=== PATIENT | male | born 1940 | race Caucasian/White ===

== ENCOUNTER → 2023-10-28 10:09 | Outpatient (REF) | payer MEDICARE, OTHER, SELFPAY | LOC: RCS 10:09 | PROVIDERS: ATTENDING PHYSICIAN Internal Medicine Cardiovascular Disease; FAMILY PHYSICIAN Family Medicine | DX: I49.3 Ventricular premature depolarization (principal) | CPT/HCPCS: 93225; 93226 ==

== ENCOUNTER → 2024-01-27 13:29 | Outpatient (REF) | payer MEDICARE, OTHER, SELFPAY | LOC: HWRAD 13:29 | PROVIDERS: ATTENDING PHYSICIAN Family Medicine | DX: R07.9 Chest pain, unspecified (principal); M25.551 Pain in right hip; M25.561 Pain in right knee | CPT/HCPCS: 71101; 73502; 73564 ==

== ENCOUNTER → 2024-09-10 11:16 | Outpatient (REF) | payer MEDICARE, OTHER, SELFPAY | LOC: HWRAD 11:16 | PROVIDERS: ATTENDING PHYSICIAN Family Medicine | DX: R31.9 Hematuria, unspecified (principal) | CPT/HCPCS: 76770 ==

== ENCOUNTER → 2024-09-25 13:10 | Outpatient (REF) | payer MEDICARE, OTHER, SELFPAY | LOC: RAD 13:10 | PROVIDERS: ATTENDING PHYSICIAN Urology; FAMILY PHYSICIAN Family Medicine | DX: R31.9 Hematuria, unspecified (principal) | CPT/HCPCS: 74178; Q9967 ==

== ENCOUNTER → 2025-02-18 15:06 | Outpatient (REF) | payer MEDICARE, OTHER, SELFPAY | LOC: CLAB 15:06 | PROVIDERS: ATTENDING PHYSICIAN Urology | DX: R31.9 Hematuria, unspecified (principal) | CPT/HCPCS: 88112 ==

== ENCOUNTER 2025-03-07 06:22 | Day surgery (SDC) | payer MEDICARE, OTHER, SELFPAY ==
[2025-03-07] VITALS (7 sets, daily range): BP systolic 159–178; BP diastolic 77–93; BMI 35.3
[2025-03-07] MEDS: CYSVIEW KIT 100 MG INTRAVES (11:40)
[2025-03-07] MEDS: NORMOSOL-R/PLASMALYTE-A 1000 IV (11:46)
[2025-03-07] MEDS: Pyridium 200 MG PO (15:47)
== END 2025-03-07 16:40 | disposition home or self-care (01) ==
LOC: SDS 06:22
PROVIDERS: ATTENDING PHYSICIAN Urology
DX: C67.9 Malignant neoplasm of bladder, unspecified (principal); N36.2 Urethral caruncle; N41.8 Other inflammatory diseases of prostate
CPT/HCPCS: 52332; 52224; C9738; 88305; 74018; 76000; 88112; A4300; A9589; C1769; C1894; C2617

== ENCOUNTER → 2025-03-18 14:01 | Outpatient (REF) | payer MEDICARE, OTHER, SELFPAY | LOC: HWRAD 14:01 | PROVIDERS: ATTENDING PHYSICIAN Family Medicine | DX: M21.371 Foot drop, right foot (principal) | CPT/HCPCS: 72110 ==

== ENCOUNTER → 2025-03-21 13:48 | Outpatient (REF) | payer MEDICARE, OTHER, SELFPAY | LOC: HWRCS 13:48 | PROVIDERS: ATTENDING PHYSICIAN Internal Medicine Cardiovascular Disease; FAMILY PHYSICIAN Family Medicine | DX: I45.10 Unspecified right bundle-branch block (principal) | CPT/HCPCS: 93306 ==

== ENCOUNTER → 2025-03-25 16:57 | Outpatient (REF) | payer MEDICARE, OTHER, SELFPAY | LOC: RAD 16:57 | PROVIDERS: ATTENDING PHYSICIAN Urology; FAMILY PHYSICIAN Family Medicine | DX: R31.9 Hematuria, unspecified (principal) | CPT/HCPCS: 71260; Q9967 ==

== ENCOUNTER → 2025-04-09 10:22 | Outpatient (REF) | payer MEDICARE, OTHER, SELFPAY | LOC: EMG 10:22 | PROVIDERS: ATTENDING PHYSICIAN Family Medicine | DX: M21.371 Foot drop, right foot (principal); R20.0 Anesthesia of skin | CPT/HCPCS: 95886; 95910 ==

== ENCOUNTER 2025-05-14 06:04 | Inpatient (IN) | payer MEDICARE, OTHER, SELFPAY ==
[2025-05-06 14:18] VITALS: BMI 35.3
[2025-05-14] VITALS (24 sets, daily range): BP systolic 133–158; BP diastolic 64–89; BMI 35.3
[2025-05-14] MEDS: NORMOSOL-R/PLASMALYTE-A 1000 IV ×3 (06:59→21:41)
--- NOTE | 2025-05-14 12:39 | W.IMMPOSTOP ---
Surgical Immed Post Op Note
-
Primary Surgeon: Haroldofer
Assisting Surgeon:
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
Post-op Diagnosis: same
Procedure Performed: Cystoscopy, resection of L ureteral orifice, Robotic assisted laparoscopic radical nephroureterectomy
Anesthesia Type: general
Specimen / Cultures: L kidney and ureter, RP lymph nodes
Estimated Blood Loss: 50cc
Complications: none
Operative Findings: -
[2025-05-14] MEDS: SYRINGE NON-PUMP 50 MG IRRIG ×2 (13:39→13:40)
[2025-05-14] MEDS: SYRINGE NON-PUMP 50 ML IRRIG ×2 (13:39→13:40)
[2025-05-14] MEDS: DILAUDID 0.25 MG IV (13:46)
[2025-05-14 13:54] LABS: Hematocrit 34.3 % (39.0-52.0); Hemoglobin 11.8 g/dL (13.0-18.0); Mean Corp Hgb Conc. 34.4 g/dL (33.0-37.0); Mean Corpuscular Volume 97.7 fL (80.0-94.0); Platelet Count 156 10^3/uL (130-400); Red Cell Dist. Width 14.3 % (11.5-14.5)
[2025-05-14 14:11] LABS: Blood Urea Nitrogen 15 mg/dl (9-20); Calcium 8.4 mg/dl (8.4-10.2); Carbon Dioxide 27 mmol/L (22-30); Chloride 105 mmol/L (98-107); Estimated Creatinine Clearance 71 ml/min; Glucose 147 mg/dl (70-99); Potassium 4.6 mmol/L (3.5-5.1); Sodium 136 mmol/L (135-145); eGFR > 60.00
[2025-05-14] MEDS: TORADOL 15 MG IV (16:35)
[2025-05-14] MEDS: COREG 25 MG PO (20:01)
[2025-05-14] MEDS: RESTASIS 0.05% OPHTHALMIC EMULSION 1 DROPS OPHTH (20:01)
[2025-05-14] MEDS: SENOKOT 17.2 MG PO (20:01)
[2025-05-14] MEDS: MELATONIN 5 MG PO (21:59)
--- NOTE | 2025-05-14 22:44 | PTCARENOTE ---
18:50 pt rec'vd from PACU, assessed with 5lap sites throught abd and 1 puncture site, all glued CDI. Pt alert with IVF, vs WNL denies pain. Oriented to unit . daughter at bedside
[2025-05-15] MEDS: TORADOL 15 MG IV ×3 (00:16→10:15)
[2025-05-15 03:00] VITALS: BP 139/69
[2025-05-15] MEDS: DILAUDID 0.5 MG IV (03:38)
[2025-05-15 06:00] VITALS: BMI 35.7
--- NOTE | 2025-05-15 06:09 | PTCARENOTE ---
06:00 staton maintained as pt has tea colored urine with blood clts.
[2025-05-15 07:05] VITALS: BP 140/65
[2025-05-15 07:53] LABS: Hematocrit 29.5 % (39.0-52.0); Hemoglobin 10.3 g/dL (13.0-18.0); Mean Corp Hgb Conc. 34.9 g/dL (33.0-37.0); Mean Corpuscular Volume 96.1 fL (80.0-94.0); Platelet Count 133 10^3/uL (130-400); Red Cell Dist. Width 14.1 % (11.5-14.5)
[2025-05-15 08:23] LABS: Blood Urea Nitrogen 22 mg/dl (9-20); Calcium 7.9 mg/dl (8.4-10.2); Carbon Dioxide 28 mmol/L (22-30); Chloride 104 mmol/L (98-107); Estimated Creatinine Clearance 51 ml/min; Glucose 118 mg/dl (70-99); Potassium 4.4 mmol/L (3.5-5.1); Sodium 135 mmol/L (135-145); eGFR 50.18
--- NOTE | 2025-05-15 08:35 | W.PN.URO.CBU ---
Addendum entered and electronically signed by Jamal Roth MD 05/15/25 14:40:
JUDI - expected surgical JUDI s/o nephrectomy
Original Note:
Today's Communication / Plan
-
- PT/OT
- OOB/ambulate
- Drake out, PVR
- Reg diet
- Increase PO fluids
- Trend labs, renal function
Possible dc today vs tomorrow
Assessment / Plan
-
84M with high grade L UTUC
Post Op s/p L nephroureterectomy, intravesical gemcitabine 05/15/25
- PT/OT
- OOB/ambulate
- Drake out, PVR
- Reg diet
- Increase PO fluids
- Trend labs, renal function
Possible dc today vs tomorrow
Diagnosis
-
Date of Service: May 15, 2025
-
Patient Diagnosis: high grade L UTUC
Post Op s/p L nephroureterectomy, intravesical gemcitabine 05/15/25
Objective
-
Vital Signs
Temp Pulse Resp BP Pulse Ox
98.8 F 80 16 140/65 96
05/15/25 07:05 05/15/25 07:05 05/15/25 07:05 05/15/25 07:05 05/15/25 07:05
Intake and Output
05/14/25 05/15/25 05/16/25
06:59 06:59 06:59
Intake Total 2480 / 2480
Output Total 500 / 500
Balance 1979 / 1979
Intake:
Oral fluids 980 / 980
IV fluids (Total) 1500 / 1500
Normosol 500 / 500
Output:
Urine, Drake 500 / 500
Laboratory Results
05/15/25 07:35
05/15/25 07:35
Physical Exam
-
General - well developed, well nourished, no acute distress
Chest - clear bilaterally
Abdomen - soft, non-tender, positive bowel sounds, no CVAT, no incisional pain or distention
Genitalia - normal
Rectal - normal
Skin - warm & dry with no rash
Neuro - AOx3, no motor deficits
Extremities - no clubbing, no cyanosis, no edema
Incision - clean, dry
Dressing - clean, dry, intact
[2025-05-15] MEDS: PROTONIX 40 MG PO (09:09)
[2025-05-15] MEDS: LOW STRENGTH ASPIRIN 81 MG PO (09:09)
[2025-05-15] MEDS: ZESTRIL 20 MG PO (09:09)
[2025-05-15] MEDS: ZYLOPRIM 100 MG PO (09:09)
[2025-05-15] MEDS: SENOKOT 17.2 MG PO (09:09)
[2025-05-15] MEDS: LASIX 20 MG PO (09:10)
[2025-05-15] MEDS: COREG 25 MG PO (09:10)
[2025-05-15] MEDS: RESTASIS 0.05% OPHTHALMIC EMULSION 1 DROPS OPHTH (09:10)
[2025-05-15] MEDS: NSS 500 IV (09:12)
--- NOTE | 2025-05-15 09:17 | PN.CDI ---
CDI
- -
CDI:
Physician Documentation Request
Admit Date: 05/14/25 06:04
Dear Doctor Peffer
Patient is s/p L nephroureterectomy
Creatinine results:
Laboratory Tests
05/14/25 05/15/25
13:30 07:35
Creatinine 1.0 1.4 H
Could you please provide a diagnosis that supports the above lab abnormalities and additional evaluation, monitoring:
JUDI
Abnormal lab value clinically insignificant
Other
Criteria for JUDI*
1 Increase in serum creatinine by > or = to 0.3 mg/dL (> or = to 26.5 micromol/L) within 48 hours, OR
2 Increase in serum creatinine to > or = to 1.5 times baseline, which is known or presumed to have occurred within 7 days, OR
3 Urine volume < 0.5 nL/kg/hour for six hours
Use of terms such as suspected, likely, concern for, or probable (associated with a specific diagnosis that is being evaluated, monitored, or treated as if it exists) are acceptable and can be coded in the inpatient setting, when documented at the
time of discharge.
Thank you,
Debbie Nicholson RN, BSN
CDI Specialist
tiger text
Please use your independent medical judgment in providing your response.
[2025-05-15] MEDS: PERCOCET 5/325 1 TABLET PO (09:23)
[2025-05-15] MEDS: LIDOCAINE URO-JET 2% 1 SYRINGE TOPICAL (10:50)
[2025-05-15 11:06] VITALS: BP 115/57; PULSE 62; O2SAT 95
[2025-05-15 11:10] VITALS: BP 115/57
--- NOTE | 2025-05-15 11:15 | CM ---
Addendum entered by Zaire Puente 05/15/25 15:30:
Per [facility] liaison pt is not home bound, does not qualify for home care services.
Pt confirmed that he is not home bound and pt stated he will resume outpatient PT/OT and [facility] [place] outpatient therapy in [place].
D/C plan: home with outpatient therapy at [facility] [place] and family support. Family to transport at discharge
Original Note:
CM following re: discharge planning.
Reviewed pt's chart, met with pt.
Pt is an 84 year old male, admitted with primary dx of POD#1 s/p L nephroureterectomy.
Pt reports he lives with spouse in a 2SG 55+ community, 6 steps to enter and has master bedroom and master bathroom on the first floor. Pt described himself as independent in all areas [employer], has a RW and uses it as needed. pt reports he has 2
children, daughter lives out of state and she is coming to help him with recovery. per pt, his son lives 5 minutes away. No VN or SNF history.
PT and OT evaluations noted - home PT/OT recommended. Pt is aware, expressed his agreement. VN choices given, pt preferred [facility]. A referral to VN made.
PCP: Sukhdev Andersen
Pharmacy: [facility]
D/C plan: home with [facility] and family support. Family to transport at discharge.
--- NOTE | 2025-05-15 12:00 | VNURNOTE ---
Home Health Liaison met with patient at bedside to discuss [facility] nurse/therapy, visits, schedule and homebound status. Patient stated his daughter is a nurse and will be home with him and spouse through weekend. Reviewed homebound criteria at
length. Patient stated he is very invested in his grandson's car racing ventures and plans on going to his races. He adamantly did not want a VN visit on Tuesday; did not want to be interrupted from grandson's racing schedule. He stated he would
be agreeable to a VN visit 'next week.' However, liaison explained that pt would not be covered for services if he's not homebound. He stated he plans on going out of the house after DC and would not be at home. He is interested in outpt PT.
No referral placed, CM Zaire and PT [place] updated.
[2025-05-15 15:00] VITALS: BP 133/89
[2025-05-15] MEDS: ZOFRAN 4 MG IV (17:05)
== END 2025-05-15 18:50 | disposition home or self-care (01) | DRG 657 ==
LOC: 2 SOUTH 06:04
PROVIDERS: ADMITTING PHYSICIAN Urology; FAMILY PHYSICIAN Family Medicine
PROC: 3E0K705 Introduction of Other Antineoplastic into Genitourinary Tract, Via Natural or Artificial Opening (ICD-10-PCS; 2025-05-14)
PROC: 0TT14ZZ Resection of Left Kidney, Percutaneous Endoscopic Approach (ICD-10-PCS; 2025-05-14)
PROC: 07BD4ZZ Excision of Aortic Lymphatic, Percutaneous Endoscopic Approach (ICD-10-PCS; 2025-05-14)
PROC: 0TT74ZZ Resection of Left Ureter, Percutaneous Endoscopic Approach (ICD-10-PCS; 2025-05-14)
PROC: 0TBB8ZZ Excision of Bladder, Via Natural or Artificial Opening Endoscopic (ICD-10-PCS; 2025-05-14)
DX: C67.6 Malignant neoplasm of ureteric orifice (principal); N17.9 Acute kidney failure, unspecified; I35.1 Nonrheumatic aortic (valve) insufficiency; I25.10 Atherosclerotic heart disease of native coronary artery without angina pectoris; Z88.8 Allergy status to other drugs, medicaments and biological substances; Z95.5 Presence of coronary angioplasty implant and graft
CPT/HCPCS: 36415; 80048; 85027; 86850; 86900; 86901; 88307; 97163; 97166; J9201

== ENCOUNTER → 2025-06-28 10:29 | Outpatient (REF) | payer MEDICARE, OTHER, SELFPAY ==
[2025-06-28 10:00] LABS: Glucose 119 mg/dl (70-99)
== END ==
LOC: PET 10:29
PROVIDERS: ATTENDING PHYSICIAN Internal Medicine Hematology & Oncology
DX: C65.2 Malignant neoplasm of left renal pelvis (principal); E78.5 Hyperlipidemia, unspecified
CPT/HCPCS: 36415; 82947